=== PATIENT | female | born 1960 | race Caucasian/White ===

== ENCOUNTER 2024-03-31 17:09 | Emergency (ER) | payer BC ==
[2024-03-31 17:34] LABS: APPEARANCE,URINE SLIGHTLY CLOUDY (CLEAR); BILIRUBIN,URINE NEGATIVE (NEGATIVE); COLOR,URINE YELLOW (YELLOW); GLUCOSE,URINE NEGATIVE (NEGATIVE); KETONES,URINE 40 mg/dL (NEGATIVE); LEUKOCYTE ESTERASE,URINE SMALL (NEGATIVE); NITRITE,URINE POSITIVE (NEGATIVE); OCCULT BLOOD,URINE NEGATIVE (NEGATIVE); PH,URINE 5.5 (5.0-8.0); PROTEIN,URINE NEGATIVE (NEGATIVE); UROBILINOGEN,URINE 0.2 EU/dL (0.2)
[2024-03-31 17:38] LABS: BACTERIA,URINE MODERATE /HPF (NOT SEEN); MUCUS,URINE FEW /LPF (NOT SEEN); RBC,URINE 0-5 /HPF (NOT SEEN); SQUAMOUS EPITHELIAL CELLS,UR FEW /HPF (NOT SEEN)
[2024-03-31 17:47] LABS: BASOPHILS PERCENT AUTO 0.3 % (0.2-1.2); EOSINOPHILS ABSOLUTE AUTO 0.2 x10^3/uL (0.0-0.5); EOSINOPHILS PERCENT AUTO 2.3 % (0.0-4.0); HEMATOCRIT 42.2 % (33.0-47.0); HEMOGLOBIN 14.2 g/dL (12.0-16.0); IMMATURE GRAN ABSOLUTE AUTO 0.01 x10^3/uL (0.00-0.07); LYMPHOCYTES ABSOLUTE AUTO 1.4 x10^3/uL (1.0-4.8); MEAN CORPUSCULAR HEMOGLOBIN 29.5 pg (26.0-32.0); MEAN CORPUSCULAR HGB CONC 33.6 g/dL (32.0-36.0); MEAN CORPUSCULAR VOLUME 87.7 fL (78.0-93.0); MONOCYTES ABSOLUTE AUTO 0.6 x10^3/uL (0.0-0.8); MONOCYTES PERCENT AUTO 8.6 % (2.0-11.0); NEUTROPHILS ABSOLUTE AUTO 4.3 x10^3/uL (1.8-7.7); NEUTROPHILS PERCENT AUTO 66.6 % (50.0-80.0); PLATELET COUNT,PLT 177 x10^3/uL (130-400); RED BLOOD CELL COUNT 4.81 x10^6/uL (4.00-5.50); WHITE BLOOD CELL COUNT,WBC 6.5 x10^3/uL (4.0-10.0)
[2024-03-31 18:03] LABS: A/G RATIO 0.82; ALANINE AMINOTRANSFERASE,ALT 26 U/L (14-59); ALBUMIN 3.2 g/dL (3.4-5.0); ALKALINE PHOSPHATASE 92 U/L (46-116); ASPARTATE AMNIOTRANSFERASE,AST 21 U/L (15-37); BLOOD UREA NITROGEN,BUN 14 mg/dL (7-18); C-REACTIVE PROTEIN 5.65 mg/dL (<=0.50); CALCIUM 9.4 mg/dL (8.5-10.1); CARBON DIOXIDE,CO2 24 mmol/L (21-32); CHLORIDE,CL 103 mmol/L (98-107); CREATININE 0.8 mg/dL (0.55-1.02); GLUCOSE RANDOM 75 mg/dL (70-99); LIPASE 26 U/L (19-71); MAGNESIUM 1.8 mg/dL (1.8-2.4); POTASSIUM,K 3.6 mmol/L (3.5-5.1); PROTEIN TOTAL,TP 7.1 g/dL (6.4-8.2); SODIUM,NA 139 mmol/L (136-145)
[2024-03-31 18:05] LABS: ANION GAP 15.6 mmol/L (5-15); ESTIMATED GFR 84 mL/min (>=60)
[2024-03-31 18:06] LABS: LACTIC ACID 1.2 mmol/L (0.4-2.0)
[2024-03-31] MEDS: cefTRIAXone 1 GM Vial IVPUSH ONE (18:25)
[2024-03-31] MEDS: Sodium Chloride 0.9% 10 ML Syringe FLUSH PRN (18:25)
== END 2024-03-31 18:31 | disposition home or self-care (01) ==
LOC: VM.ED 17:09
DX: N39.0 Urinary tract infection, site not specified (principal); Z88.0 Allergy status to penicillin; Z88.8 Allergy status to other drugs, medicaments and biological substances
CPT/HCPCS: 80053; 81001; 83605; 83690; 83735; 85025; 86140; 87086; 96374; 99284; J0696; 87088; 87186

== ENCOUNTER 2025-03-30 12:42 | Emergency (ER) | payer OTHER, BC ==
[2025-03-30] MEDS: Ondansetron 4 MG/2 ML SDV ONE (12:47)
[2025-03-30] MEDS: Lactated Ringers 1,000 ML IV SCH (12:50)
[2025-03-30 13:14] LABS: BASOPHILS ABSOLUTE AUTO 0.0 x10^3/uL (0.0-0.2); BASOPHILS PERCENT AUTO 0.6 % (0.2-1.2); EOSINOPHILS ABSOLUTE AUTO 0.1 x10^3/uL (0.0-0.5); EOSINOPHILS PERCENT AUTO 1.3 % (0.0-4.0); IMMATURE GRAN ABSOLUTE AUTO 0.04 x10^3/uL (0.00-0.07); IMMATURE GRAN PERCENT AUTO 0.60 % (0.00-0.43); LYMPHOCYTES ABSOLUTE AUTO 2.3 x10^3/uL (1.0-4.8); LYMPHOCYTES PERCENT AUTO 32.3 % (25.0-50.0); MONOCYTES ABSOLUTE AUTO 0.6 x10^3/uL (0.0-0.8); MONOCYTES PERCENT AUTO 8.0 % (2.0-11.0); NEUTROPHILS ABSOLUTE AUTO 4.1 x10^3/uL (1.8-7.7); NEUTROPHILS PERCENT AUTO 57.2 % (50.0-80.0); PLATELET COUNT,PLT 199 x10^3/uL (130-400); RED BLOOD CELL COUNT 4.56 x10^6/uL (4.00-5.50); WHITE BLOOD CELL COUNT,WBC 7.2 x10^3/uL (4.0-10.0)
[2025-03-30 13:35] LABS: A/G RATIO 0.97; ALANINE AMINOTRANSFERASE,ALT 30 U/L (14-59); ASPARTATE AMNIOTRANSFERASE,AST 40 U/L (15-37); BILIRUBIN TOTAL 0.7 mg/dL (0.2-1.0); BLOOD UREA NITROGEN,BUN 21 mg/dL (7-18); CARBON DIOXIDE,CO2 18 mmol/L (21-32); CHLORIDE,CL 107 mmol/L (98-107); CREATININE 0.9 mg/dL (0.55-1.02); GLUCOSE RANDOM 133 mg/dL (70-99); POTASSIUM,K 3.5 mmol/L (3.5-5.1); PROTEIN TOTAL,TP 6.1 g/dL (6.4-8.2); SODIUM,NA 141 mmol/L (136-145)
[2025-03-30 13:37] LABS: ESTIMATED GFR 72 mL/min (>=60)
[2025-03-30 13:48] LABS: INR 1.1 (0.9-1.1); PTT,PARTIAL THROMBOPLSTIN TIME 22.0 SEC (24.3-33.4)
[2025-03-30] MEDS ORDERED: Sodium Chloride 0.9% 10 ML Syringe FLUSH PRN (13:55)
[2025-03-30 14:04] LABS: APPEARANCE,URINE CLOUDY (CLEAR); GLUCOSE,URINE NEGATIVE (NEGATIVE); OCCULT BLOOD,URINE NEGATIVE (NEGATIVE)
[2025-03-30] MEDS ORDERED: NOREPINEPHRINE BIT ONE (14:09)
[2025-03-30] MEDS ORDERED: D5W ONE (14:09)
[2025-03-30 14:14] LABS: SQUAMOUS EPITHELIAL CELLS,UR NOT SEEN /HPF (NOT SEEN)
[2025-03-30] MEDS ORDERED: Norepinephrine Bit/D5W Premix 4 MG/250 ML BAG IV SCH (14:15)
== END 2025-03-30 14:10 | disposition short-term general hospital (02) ==
LOC: VM.ED 12:42
DX: S06.6X1A Traumatic subarachnoid hemorrhage with loss of consciousness of 30 minutes or less, initial encounter (principal); S06.5X1A Traumatic subdural hemorrhage with loss of consciousness of 30 minutes or less, initial encounter; Z88.0 Allergy status to penicillin; Z88.1 Allergy status to other antibiotic agents; W00.0XXA Fall on same level due to ice and snow, initial encounter; Y93.89 Activity, other specified
CPT/HCPCS: 36415; 51702; 70450; 72125; 80053; 81001; 83735; 84484; 85025; 85610; 85730; 96361; 96374; 96375; 99284; 99285-25; J2405; J7030; J7120